=== PATIENT | female | born 1950 | race African-American/Black ===

== ENCOUNTER 2016-11-02 21:31 | Emergency (ER) | payer MEDICAID ==
[~2016-11-02] VITALS: Ht 157.5 cm; Wt 70.8 kg
[~2016-11-02 21:31] MED LIST: ACETAMINOPHEN-1 EAC1 ORAL; ASPIRIN81 MG ORAL; BENADRYL ALLERG25 M1 PO; BENADRYL50 MG ORAL; BENAZEPRIL HCL10 MG ORAL; CLINDAMYCIN HC300 MG ORAL; FLONASE1 SPRAYS NASAL; IBUPROFEN600 MG ORAL; NAPROXEN250 MG ORAL; NKM; PRAVASTATIN SOD20 M1 ORAL; PROAIR HFA8.5 GM INH; PROMETHAZINE-D118 ML ORAL; RANITIDINE HCL150 MG ORAL; ZITHROMAX250 MG ORAL
[2016-11-02] MEDS ORDERED: ACETAMINOPHEN-1 EAC1 ORAL (22:59)
[2016-11-02] MEDS ORDERED: IBUPROFEN400 MG ORAL (23:03)
[2016-11-02 23:15] VITALS: BP 121/71
--- NOTE | 2016-11-03 11:46 | Diagnostic Imaging Report ---
Indication: PAIN Technique: 3 views right foot Comparison: none Findings: No acute fractures. No dislocations. The joint spaces are preserved. Impression: Negative
--- NOTE | 2016-11-07 05:47 | Emergency Room Report ---
History of Present Illness General Chief Complaint: Lower Extremity Injury Source: Patient Present Illness HPI Patient 65-year-old female who presented after increased lower extremity pain. The patient stated that a 5 L water container had fallen onto her foot. The patient reported increased pain after the injury. She denied any numbness or tingling distally to the injury. Pain was predominantly onto the dorsum of the foot and did not report any other locations of pain other than foot and ankle. Patient the injury several hours prior to arrival. She had acute onset of symptoms. Patient had been able to ambulate. Allergies: Coded Allergies: No Known Allergies (Verified Allergy, Mild, 12/22/06) Patient History Past Medical History: see triage record Last Menstrual Period: Menopause Now: No Reviewed Nursing Documentation: PMH: Agreed, PSxH: Agreed Nursing Documentation-PMH Past Medical History: No History, Except For Hx Cardiac Problems: No - Lupus Hx Hypertension: Yes Hx Pacemaker: No - hyperlipidemia Hx Cancer: No Hx Gastrointestinal Problems: No Hx Neurological Problems: No Review of Systems All Other Systems: negative except mentioned in HPI Physical Exam Vital Signs Date Time Temp Pulse Resp B/P Pulse Ox O2 Delivery O2 Flow Rate FiO2 11/02/16 21:39 97.3 86 16 121/71 100 Room Air General Appearance: well appearing, no apparent distress, alert, GCS 15 Head: normocephalic, atraumatic ENT: hearing grossly normal, normal voice Neck: full range of motion, supple Respiratory: lungs clear, no respiratory distress, speaking full sentences Cardiovascular #1: normal inspection, no edema Musculoskeletal: normal inspection, no calf tenderness, swelling Neurologic: alert, oriented x3, responsive, business analysis consultant III-XII nml as tested, normal gait Psychiatric: mood/affect normal Skin: no rash Medical Decision Making Diagnostic Impression: Primary Impression: Foot contusion ER Course Patient presented for foot pain. Differential diagnosis included but was not limited to fracture, contusion, vascular insufficiency, aortic aneurysm, cellulitis. X-ray imaging of the foot was ordered. X-ray imaging 3 views interpreted by me showed degenerative changes without evident fracture. Other X-Ray Diagnostic Results Other X-Ray Diagnostic Results : # of Views/Limited Vs Complete: 3 View Indication: Pain EP Interpretation: Yes Interpretation: no dislocation, no soft tissue swelling, no fractures, other - djd Impression: No acute disease Interpreting ER Provider: Electronically signed by Dr. Mikael Augusto M.D. Last Vital Signs Date Time Temp Pulse Resp B/P Pulse Ox O2 Delivery O2 Flow Rate FiO2 11/02/16 23:15 97.3 16 121/71 100 Room Air 11/02/16 21:39 86 Status: improved Disposition: HOME, SELF-CARE Condition: Stable Scripts Ibuprofen* (MOTRIN*) 400 Mg Tablet 400 MG ORAL Q8H, #30 TAB 0 Refills Prov: Mikael Casas 11/02/16 Patient Instructions: Foot Contusion Mikael Casas Nov 07, 2016 05:47
== END 2016-11-02 23:15 | disposition home or self-care (01) ==
LOC: EMR 22:05
DX: S90.31XA Contusion of right foot, initial encounter (principal); W22.8XXA Striking against or struck by other objects, initial encounter; Y93.9 Activity, unspecified; Y92.9 Unspecified place or not applicable; I10 Essential (primary) hypertension; M19.071 Primary osteoarthritis, right ankle and foot
CPT/HCPCS: 99283

== ENCOUNTER 2016-12-08 17:34 | Emergency (ER) | payer MEDICAID ==
[~2016-12-08] VITALS: Ht 157.5 cm; Wt 66.7 kg
[~2016-12-08 17:34] MED LIST changes: +IBUPROFEN400 MG ORAL
[2016-12-08] MEDS ORDERED: IBUPROFEN600 MG ORAL (18:43)
[2016-12-08] MEDS ORDERED: PROMETHAZI6.25 MG/1 ORAL (18:43)
[2016-12-08] MEDS ORDERED: PREDNISONE20 MG ORAL (18:43)
[2016-12-08 19:01] VITALS: BP 135/92
[2016-12-08 19:03] VITALS: BP 135/92
--- NOTE | 2016-12-08 22:45 | Emergency Room Report ---
History of Present Illness General Chief Complaint: Upper Respiratory Illness Source: Patient Present Illness [facility] The patient is a 66-year-old female presenting for sore throat and cough. Symptoms began one week prior. Cough is productive with yellow sputum. Pain is a 7/10 dull ache to the throat and mid chest, worse with coughing. She denies any known sick contacts or recent travel. She admits to subjective fever and chills. She denies other symptoms including nausea, vomiting, shortness of breath, rash Allergies: Coded Allergies: No Known Allergies (Verified Allergy, Mild, 12/22/06) Patient History Past Medical History: see triage record Pertinent Family History: none Last Menstrual Period: na Reviewed Nursing Documentation: PMH: Agreed, PSxH: Agreed Nursing Documentation-PMH Past Medical History: No History, Except For Hx Hypertension: Yes Hx Pacemaker: No - hyperlipidemia Hx Cancer: No Hx Gastrointestinal Problems: No Hx Neurological Problems: No Review of Systems All Other Systems: negative except mentioned in HPI Physical Exam Vital Signs Date Time Temp Pulse Resp B/P Pulse Ox O2 Delivery O2 Flow Rate FiO2 12/08/16 17:42 98.4 93 22 136/99 98 Room Air Sp02 EP Interpretation: reviewed, normal General Appearance: no apparent distress, alert, GCS 15, non-toxic Head: normocephalic, atraumatic Eyes: bilateral eye PERRL, bilateral eye normal inspection ENT: hearing grossly normal, no angioedema, normal voice, uvula midline Neck: full range of motion, supple/symm/no masses Respiratory: normal inspection, chest non-tender, no respiratory distress, no accessory muscle use, wheezing - bilat lower lungs Cardiovascular #1: regular rate, rhythm, no edema Genitourinary: normal inspection, no CVA tenderness Musculoskeletal: back normal, gait/station normal, normal range of motion, non- tender Neurologic: alert, oriented x3, responsive, motor strength/tone normal, sensory intact, speech normal Psychiatric: judgement/insight normal, memory normal, mood/affect normal, no suicidal/homicidal ideation Skin: normal color, no rash, warm/dry, well hydrated Lymphatic: no adenopathy Medical Decision Making PA Attestation Dr. Esposito is my supervising physician. Patient management was discussed with my supervising physician Diagnostic Impression: Primary Impression: Bronchitis ER Course The patient is a 66-year-old female presenting for sore throat and cough. Differential diagnosis include but not limited to pharyngitis, sinusitis, AOM, bronchitis, PNA PE: afebrile. NAD HEENT exam is unremarkable. No lymphadenopathy There is bilateral wheezing to lower lungs. No respiratory distress Chest x-ray is unremarkable The patient will be discharged home and treated for bronchitis. ER precautions given Chest X-Ray Diagnostic Results Chest X-Ray Diagnostic Results : Chest X-Ray Ordered: Yes # of Views/Limited/Complete: 1 View Indication: Other - cough EP Interpretation: Yes Interpretation: no consolidation, no effusion, no pneumothorax, no acute cardiopulmonary disease Impression: No acute disease Interpreting ER Provider: Dr. Vaibhav SYED Scribe Text I am acting as scribe for my supervising physician. My supervising physician's interpretation of the chest xrays are there is no consolidation, no effusion, no acute cardiopulmonary disease, no pneumothorax Last Vital Signs Date Time Temp Pulse Resp B/P Pulse Ox O2 Delivery O2 Flow Rate FiO2 12/08/16 19:03 98.4 62 22 135/92 98 Room Air Status: improved Disposition: HOME, SELF-CARE Condition: Improved Scripts Promethazine Hcl (PROMETHAZINE HCL*) 6.25 Mg/5 Ml Syrup 5 ML ORAL Q8H, #120 ML 0 Refills Prov: TERZIANDAVIDY P.A. 12/08/16 Prednisone* (PREDNISONE*) 20 Mg Tablet 40 MG ORAL DAILY, #10 TAB Prov: TERZIAN,DEV P.A. 12/08/16 Ibuprofen* (MOTRIN*) 600 Mg Tablet 600 MG ORAL Q8H Y for For Pain, #30 TAB 0 Refills Prov: TERZIAN,DEV P.A. 12/08/16 Referrals: [facility] [place],REFERRING (PCP) Patient Instructions: Acute Bronchitis Additional Instructions: I discussed my findings with the patient. All questions and concerns have been answered. Treatment and medication compliance have been addressed. I advised the patient that they need to follow up with PMD in 3-5 days. Return to ED if pain remains or worsens, cough worsens or remains, you notice blood in your sputum, you notice wheezing, you experience a fever, or if needed for any reason. Patient verbalized understanding of discharge instructions. DEV GELLER Dec 08, 2016 22:45
--- NOTE | 2016-12-09 10:28 | Diagnostic Imaging Report ---
Indication: COUGH Technique: One view of the chest Comparison: none Findings: Lungs and pleural spaces are clear. Heart size is normal. Impression: No acute process
== END 2016-12-08 19:31 | disposition home or self-care (01) ==
LOC: EMR 18:16
DX: J40 Bronchitis, not specified as acute or chronic (principal); I10 Essential (primary) hypertension; E78.5 Hyperlipidemia, unspecified
CPT/HCPCS: 71010; 99284

== ENCOUNTER 2017-05-02 14:25 | Emergency (ER) | payer MEDICARE, MEDICAID ==
[~2017-05-02] VITALS: Ht 157.5 cm; Wt 71.2 kg
[~2017-05-02 14:25] MED LIST changes: +PREDNISONE20 MG ORAL; +PROMETHAZI6.25 MG/1 ORAL
[2017-05-02 15:20] VITALS: BP 150/90
[2017-05-02] MEDS ORDERED: ACETAMINOPHEN-1 EAC1 ORAL (15:26)
[2017-05-02 15:39] VITALS: BP 150/90
--- NOTE | 2017-05-02 22:03 | Emergency Room Report ---
History of Present Illness General Chief Complaint: Pain Source: Patient Present Illness HPI The patient is a 66-year-old female presenting for pain to both hands. She states that this has been progressing for the past several months. Pain is worse in the mornings. She also admits to some stiffness of her joints. Pain is a 8/10 dull ache and worse with movement. She denies any injury to her hands. She has used Motrin which temporarily helps. She denies any other symptoms including fever, chills, rash, numbness Allergies: Coded Allergies: No Known Allergies (Verified Allergy, Mild, 12/22/06) Patient History Past Medical History: see triage record Pertinent Family History: none Last Menstrual Period: Post Reviewed Nursing Documentation: PMH: Agreed, PSxH: Agreed Nursing Documentation-PMH Hx Hypertension: Yes Hx Pacemaker: No - hyperlipidemia Hx Cancer: No Hx Gastrointestinal Problems: No Hx Neurological Problems: No Review of Systems All Other Systems: negative except mentioned in HPI Physical Exam Vital Signs Date Time Temp Pulse Resp B/P (MAP) Pulse Ox O2 Delivery O2 Flow Rate FiO2 05/02/17 15:10 98.2 89 19 150/90 98 Room Air Sp02 EP Interpretation: reviewed, normal General Appearance: no apparent distress, alert, GCS 15, non-toxic Head: normocephalic, atraumatic Eyes: bilateral eye normal inspection, bilateral eye PERRL ENT: hearing grossly normal, normal pharynx, no angioedema, normal voice Musculoskeletal: normal range of motion, swelling - all IP joints, tender - mild over wrists and all IP joints Neurologic: alert, oriented x3, responsive, motor strength/tone normal, sensory intact, speech normal Psychiatric: judgement/insight normal, memory normal, mood/affect normal, no suicidal/homicidal ideation Skin: normal color, no rash, warm/dry, well hydrated Medical Decision Making PA Attestation Dr. Catalan is my supervising physician. Patient management was discussed with my supervising physician Diagnostic Impression: Primary Impression: Hand arthritis ER Course The patient is a 66-year-old female presenting for pain to both hands. Ddx considered include but not limited to arthritis, sprain/strain, fracture, contusion, gout PE: Afebrile. NAD Bilateral hands have mild tenderness to palpation over joints. There is some swelling of the IP joints. Full active range of motion is intact Radial pulses 2+ This is likely arthritic changes. Patient will be discharged home with pain medication and will followup with her primary doctor. ER precautions are given Last Vital Signs Date Time Temp Pulse Resp B/P (MAP) Pulse Ox O2 Delivery O2 Flow Rate FiO2 05/02/17 15:39 98.2 89 19 150/90 98 Room Air Status: improved Disposition: HOME, SELF-CARE Condition: Improved Scripts Acetaminophen With Codeine (T#3) (TYLENOL #3 TAB*) Y Tab 1 TAB ORAL Q6HR Y for For Pain, #10 TAB Prov: DEV GELLER 05/02/17 Referrals: [facility],REFERRING (PCP) Patient Instructions: Arthritis Additional Instructions: I discussed my findings with the patient. All questions and concerns have been answered. Treatment and medication compliance have been addressed. I advised the patient that they need to follow up with PMD in 3-5 days. Return to ED if symptoms worsen, new symptoms arise, or if needed for any reason. Patient verbalized understanding of discharge instructions. EDV GELLER May 02, 2017 22:03
== END 2017-05-02 16:00 | disposition home or self-care (01) ==
LOC: EMR 15:40
DX: M19.042 Primary osteoarthritis, left hand (principal); M19.041 Primary osteoarthritis, right hand; I10 Essential (primary) hypertension; E78.5 Hyperlipidemia, unspecified
CPT/HCPCS: 99283

== ENCOUNTER 2017-05-10 02:46 | Emergency (ER) | payer MEDICARE, MEDICAID ==
[~2017-05-10] VITALS: Ht 157.5 cm; Wt 70.8 kg
[2017-05-10 02:56] VITALS: BP 146/70
[2017-05-10 03:05] VITALS: BP 146/70
[2017-05-10] MEDS ORDERED: POLYTRIM OP SOL10 ML OPHTHALM (03:05)
--- NOTE | 2017-05-10 03:05 | Emergency Room Report ---
History of Present Illness General Chief Complaint: Eye Problems Source: Patient Present Illness HPI This is a 66-year-old female with no significant past medical history. She present with chief complaint of red eye. Onset yesterday. Some redness and itchiness to the right eye. Mild crusting. Also a slight congestion and cough. No fever or chills. No pain. No foreign body. Allergies: Coded Allergies: No Known Allergies (Verified Allergy, Mild, 12/22/06) Patient History Past Medical History: see triage record, old chart reviewed Past Surgical History: other Pertinent Family History: none Social History: Denies: smoking Now: No Immunizations: other Reviewed Nursing Documentation: PMH: Agreed, PSxH: Agreed Nursing Documentation-PMH Past Medical History: No History, Except For Hx Cardiac Problems: No - Lupus, High cholesterol Hx Hypertension: Yes Hx Pacemaker: No - hyperlipidemia Hx Cancer: No Hx Gastrointestinal Problems: No Hx Neurological Problems: No Review of Systems Eye: Reports: discharge, Denies: eye pain, blurred vision ENT: Denies: ear pain, nose congestion, throat swelling Respiratory: Denies: cough, shortness of breath Cardiovascular: Denies: chest pain, palpitations Gastrointestinal: Denies: abdominal pain, diarrhea, nausea, vomiting Musculoskeletal: Denies: back pain, joint pain Skin: Denies: rash Neurological: Denies: headache, numbness Endocrine: Denies: increased thirst, increased urine Hematologic/Lymphatic: Denies: easy bruising All Other Systems: negative except mentioned in HPI Physical Exam Vital Signs Date Time Temp Pulse Resp B/P (MAP) Pulse Ox O2 Delivery O2 Flow Rate FiO2 05/10/17 02:52 98.1 75 16 150/73 97 Room Air vitals normal slight blood pressure elevation Sp02 EP Interpretation: reviewed, normal General Appearance: well appearing, no apparent distress, alert Head: normocephalic, atraumatic Eyes: right eye other - Right conjunctiva with injection, bilateral eye PERRL, bilateral eye EOMI ENT: hearing grossly normal, normal pharynx Neck: full range of motion, supple, no meningismus Respiratory: chest non-tender, lungs clear, normal breath sounds Cardiovascular #1: regular rate, rhythm, no murmur Gastrointestinal: normal bowel sounds, non tender, no mass, no organomegaly, no bruit, non-distended Musculoskeletal: back normal, gait/station normal, normal range of motion Psychiatric: mood/affect normal Skin: warm/dry Medical Decision Making Diagnostic Impression: Primary Impression: Conjunctivitis Qualified Codes: H10.31 - Unspecified acute conjunctivitis, right eye ER Course Patient with a conjunctivitis. Most likely viral in nature. No evidence of any foreign body. No herpetic infection. Last Vital Signs Date Time Temp Pulse Resp B/P (MAP) Pulse Ox O2 Delivery O2 Flow Rate FiO2 05/10/17 02:52 98.1 75 16 150/73 97 Room Air Status: unchanged Disposition: HOME, SELF-CARE Condition: Stable Scripts Polymyxin/Trimethoprim (Polytrim Eye Drops) 10 Ml Drops 2 DROP OPHTHALM THREE TIMES A DAY, #1 EA Instill in affected eye for 7 days Prov: ARLEY MARTIN M.D. 05/10/17 Patient Instructions: Viral Conjunctivitis Additional Instructions: Treat both eyes. Followup with your Dr. in 7 days. Return if worse. ARLEY MARTIN M.D. May 10, 2017 03:05
== END 2017-05-10 03:10 | disposition home or self-care (01) ==
LOC: EMR 03:06
DX: H10.9 Unspecified conjunctivitis (principal); I10 Essential (primary) hypertension; M32.9 Systemic lupus erythematosus, unspecified; E78.00 Pure hypercholesterolemia, unspecified; E78.5 Hyperlipidemia, unspecified
CPT/HCPCS: 99283